=== PATIENT | female | born 1945 | race Caucasian/White ===

== ENCOUNTER 2016-08-02 17:20 | Inpatient (IN) | payer MEDICARE, MEDICAID ==
[~2016-08-02] VITALS: Ht 177.8 cm; Wt 112.9 kg
[2016-08-02] MEDS ORDERED: CYMBALTA30 MG PO (18:16)
[2016-08-02] MEDS ORDERED: TAMOXIFEN CITRA20 MG PO (18:23)
[2016-08-02] MEDS ORDERED: EDARBYCLOR 40-1 EACH PO (18:23)
[2016-08-02] MEDS ORDERED: PRADAXA150 MG PO (18:24)
[2016-08-02] MEDS ORDERED: BENTYL10 MG PO (18:24)
[2016-08-02] MEDS ORDERED: LIPITOR80 MG PO (18:24)
[2016-08-02] MEDS ORDERED: SYNTHROID125 MCG PO (18:25)
[2016-08-02] MEDS ORDERED: CARDIZEM SR120 MG PO (18:25)
[2016-08-02] MEDS ORDERED: NEXIUM40 MG PO (18:26)
[2016-08-02] MEDS ORDERED: CALCIUM CITRAT1 EAC1 PO (18:27)
[2016-08-02] MEDS ORDERED: CRANBERRY PLUS1 EAC1 PO (18:27)
[2016-08-02] MEDS ORDERED: LANTUS SOL100 UNIT/1 SUBCUT (18:29)
[2016-08-02] MEDS ORDERED: HUMULIN R100 UNIT/1 SUBCUT (18:30)
[2016-08-06] MEDS ORDERED: LEVAQUIN500 MG PO (11:37)
== END 2016-08-06 16:20 | disposition short-term general hospital (02) | DRG 194 ==
LOC: ER 17:20 → IP 19:25
PROVIDERS: ADMIT Family Medicine
PROC: 3E0F7GC Introduction of Other Therapeutic Substance into Respiratory Tract, Via Natural or Artificial Opening (ICD-10-PCS; principal; 2016-08-03)
DX: J18.9 Pneumonia, unspecified organism (principal); E87.1 Hypo-osmolality and hyponatremia; I48.91 Unspecified atrial fibrillation; I25.10 Atherosclerotic heart disease of native coronary artery without angina pectoris; E11.42 Type 2 diabetes mellitus with diabetic polyneuropathy; E11.43 Type 2 diabetes mellitus with diabetic autonomic (poly)neuropathy; K31.84 Gastroparesis; Z79.4 Long term (current) use of insulin; K21.9 Gastro-esophageal reflux disease without esophagitis; E78.5 Hyperlipidemia, unspecified; I10 Essential (primary) hypertension; E03.9 Hypothyroidism, unspecified; E66.9 Obesity, unspecified; I27.2 Other secondary pulmonary hypertension; I34.0 Nonrheumatic mitral (valve) insufficiency; N28.9 Disorder of kidney and ureter, unspecified; E86.0 Dehydration; N39.498 Other specified urinary incontinence; E87.6 Hypokalemia; D64.9 Anemia, unspecified; J01.30 Acute sphenoidal sinusitis, unspecified
CPT/HCPCS: J1815; J1956; J2405; J2543; J2765; J8499

== ENCOUNTER → 2016-09-28 | Outpatient (CLI) | payer MEDICARE, MEDICAID ==
[~2016-09-28] MED LIST: BENTYL10 MG PO; CALCIUM CITRAT1 EAC1 PO; CARDIZEM SR120 MG PO; CRANBERRY PLUS1 EAC1 PO; CYMBALTA30 MG PO; EDARBYCLOR 40-1 EACH PO; HUMULIN R100 UNIT/1 SUBCUT; LANTUS SOL100 UNIT/1 SUBCUT; LEVAQUIN500 MG PO; LIPITOR80 MG PO; NEXIUM40 MG PO; PRADAXA150 MG PO; SYNTHROID125 MCG PO; TAMOXIFEN CITRA20 MG PO
== END | disposition short-term general hospital (02) ==
LOC: CLCARD 08:38
DX: I25.10 Atherosclerotic heart disease of native coronary artery without angina pectoris (principal); I48.0 Paroxysmal atrial fibrillation; E78.5 Hyperlipidemia, unspecified; I34.0 Nonrheumatic mitral (valve) insufficiency; I12.9 Hypertensive chronic kidney disease with stage 1 through stage 4 chronic kidney disease, or unspecified chronic kidney disease; E11.22 Type 2 diabetes mellitus with diabetic chronic kidney disease; N18.9 Chronic kidney disease, unspecified; E66.01 Morbid (severe) obesity due to excess calories; J18.9 Pneumonia, unspecified organism